=== PATIENT | male | born 1955 | race Two or more races ===

== ENCOUNTER 2018-01-29 10:57 | Emergency (ER) | payer MEDICAID, MEDICARE, OTHER ==
[~2018-01-29] VITALS: Ht 177.8 cm; Wt 89.8 kg
[~2018-01-29 10:57] MED LIST: RANITIDINE HCL150 MG ORAL; TAMSULOSIN HCL0.4 MG ORAL
[2018-01-29] MEDS ORDERED: IBUPROFEN600 MG ORAL (11:32)
[2018-01-29 11:41] VITALS: BP 96/60
--- NOTE | 2018-01-29 14:09 | Emergency Room Report ---
History of Present Illness General Chief Complaint: General Complaint Source: Patient, Medical Record Present Illness HPI 62-year-old male presents ED for evaluation. States that since last night he's been experiencing some chills and body aches. Afebrile in triage. Denies any symptoms at this time. Denies cough. Denies sore throat or earache. Denies dysuria or hematuria. Denies sick contacts or recent travel. No other aggravating relieving factors. Denies any other associated symptoms Allergies: Coded Allergies: No Known Allergies (Verified , 02/26/10) Patient History Past Medical History: none Past Surgical History: none Pertinent Family History: none Social History: Denies: smoking, alcohol use, drug use Immunizations: UTD Reviewed Nursing Documentation: PMH: Agreed; PSxH: Agreed Nursing Documentation-PMH Past Medical History: No History, Except For Physical Exam Vital Signs Date Time Temp Pulse Resp B/P (MAP) Pulse Ox O2 Delivery O2 Flow Rate FiO2 01/29/18 11:01 99.5 94 18 82/54 95 Room Air 99.5 Medical Decision Making Diagnostic Impression: Primary Impression: Upper respiratory infection Qualified Codes: J06.9 - Acute upper respiratory infection, unspecified ER Course Hospital Course 62-year-old male presents ED with episodic body aches and chills Differential diagnoses include: URI, pharyngitis, otitis media, asthma Clinical course Patient placed on stretcher. After initial history, physical exam reveals an elderly male in no acute distress. Bilateral TM unremarkable. No pharyngeal erythema. No tonsillar exudates. No lymphadenopathy. lungs clear. abdomen soft. Exam unremarkable. Vital stable. Reassurance given to patient. treatment is supportive therapy Diagnosis - URI Stable and discharged home with Rx Motrin. Instructed to followup with PMD. Return to ED if symptoms recur or worsen Last Vital Signs Date Time Temp Pulse Resp B/P (MAP) Pulse Ox O2 Delivery O2 Flow Rate FiO2 01/29/18 11:41 99.5 80 18 96/60 95 Room Air 99.5 Status: improved Disposition: HOME, SELF-CARE Condition: Stable Scripts Ibuprofen* (MOTRIN*) 600 Mg Tablet 600 MG ORAL Q8H PRN for For Pain, #30 TAB 0 Refills Prov: Franky Gilliam MD 01/29/18 Patient Instructions: Viral Respiratory Infection, [id number] Franky Gilliam MD Jan 29, 2018 14:09
== END 2018-01-29 11:57 | disposition home or self-care (01) ==
LOC: EMR 11:26
DX: J06.9 Acute upper respiratory infection, unspecified (principal)
CPT/HCPCS: 99283

== ENCOUNTER 2019-03-06 20:37 | Emergency (ER) | payer MEDICAID, MEDICARE, OTHER ==
[~2019-03-06] VITALS: Ht 165.1 cm; Wt 90.7 kg
[~2019-03-06 20:37] MED LIST changes: +IBUPROFEN600 MG ORAL
[2019-03-06 20:45] VITALS: BP 136/78
--- NOTE | 2019-03-06 20:45 | NUR ---
ED Nurse Note: Pt brought in by ambulance from street, pt was witnessed ground level fall, hitting the back of his head, denies pain at this time. Pt is awake and oriented to self and place. Pt is calm and cooperative, small area of dried blood on posterior head, denies LOC. Pt placed on monitor.
--- NOTE | 2019-03-06 20:50 | Emergency Room Report ---
History of Present Illness General Chief Complaint: Multiple Trauma/Fall Source: Patient Present Illness HPI Patient presents with complaints of occipital pain and upper neck pain patient had a fall earlier today Cannot recall the specifics of his fall Patient does report drinking heavily today Denies any chest pain or shortness of breath Denies any back or flank pain Denies any focal weakness patient ambulates with a cane Allergies: Coded Allergies: No Known Allergies (Verified , 02/26/10) Patient History Past Medical History: see triage record Reviewed Nursing Documentation: PMH: Agreed; PSxH: Agreed Review of Systems All Other Systems: negative except mentioned in HPI Physical Exam Vital Signs Date Time Temp Pulse Resp B/P (MAP) Pulse Ox O2 Delivery O2 Flow Rate FiO2 03/06/19 20:38 98.1 64 16 136/78 (97) 96 Room Air Sp02 EP Interpretation: reviewed, normal General Appearance: well appearing, no apparent distress Head: normocephalic, other - Small abrasion posterior occipital region scabbing Eyes: bilateral eye PERRL, bilateral eye EOMI ENT: hearing grossly normal, normal pharynx, TMs + canals normal, uvula midline Neck: full range of motion, supple, no meningismus, no bony tend - However mildly uncomfortable paraspinal C3-C4 region Respiratory: lungs clear, normal breath sounds, no rhonchi, no respiratory distress, no retraction, no accessory muscle use Cardiovascular #1: normal peripheral pulses, regular rate, rhythm, no edema, no gallop, no JVD, no murmur Gastrointestinal: normal bowel sounds, non tender, soft, no mass, no organomegaly, non-distended, no guarding, no hernia, no pulsatile mass, no rebound Genitourinary: no CVA tenderness Musculoskeletal: normal inspection Neurologic: oriented x3, responsive, nursing assoc III-XII nml as tested, motor strength/ tone normal, sensory intact Psychiatric: mood/affect normal Skin: no rash Lymphatic: normal inspection, no adenopathy Medical Decision Making Diagnostic Impression: Primary Impression: Alcohol abuse Additional Impression: Head injury ER Course Multiple differentials including but not limited to neurological, neurosurgical , cardiac, metabolic pathology entertained Patient's blood work reveals a low potassium level which was replaced CT imaging of the head and neck area is negative for acute trauma Patient remains hemodynamically stable He does again report alcohol intake patient is observed further for further sobriety With outpatient disposition Labs Test 03/06/19 21:00 White Blood Count 5.6 K/UL (4.8-10.8) Red Blood Count 4.95 M/UL (4.70-6.10) Hemoglobin 14.7 G/DL (14.2-18.0) Hematocrit 44.8 % (42.0-52.0) Mean Corpuscular Volume 90 FL (80-99) Mean Corpuscular Hemoglobin 29.7 PG (27.0-31.0) Mean Corpuscular Hemoglobin Concent 32.8 G/DL (32.0-36.0) Red Cell Distribution Width 12.0 % (11.6-14.8) Platelet Count 112 K/UL (150-450) Mean Platelet Volume 13.3 FL (6.5-10.1) Neutrophils (%) (Auto) 57.0 % (45.0-75.0) Lymphocytes (%) (Auto) 33.1 % (20.0-45.0) Monocytes (%) (Auto) 7.5 % (1.0-10.0) Eosinophils (%) (Auto) 1.6 % (0.0-3.0) Basophils (%) (Auto) 0.8 % (0.0-2.0) Sodium Level 143 MMOL/L (136-145) Potassium Level 2.9 MMOL/L (3.5-5.1) Chloride Level 103 MMOL/L (98-107) Carbon Dioxide Level 31 MMOL/L (21-32) Anion Gap 9 mmol/L (5-15) Blood Urea Nitrogen 6 mg/dL (7-18) Creatinine 0.7 MG/DL (0.55-1.30) Estimat Glomerular Filtration Rate > 60 mL/min (>60) Glucose Level 106 MG/DL (74-106) Calcium Level 8.1 MG/DL (8.5-10.1) Rhythm Strip Diag. Results EP Interpretation: yes Rate: 80 Rhythm: NSR, no PVC's, no ectopy CT/MRI/US Diagnostic Results CT/MRI/US Diagnostic Results : Impression CT head no acute disease CT C-spine no acute disease Last Vital Signs Date Time Temp Pulse Resp B/P (MAP) Pulse Ox O2 Delivery O2 Flow Rate FiO2 03/06/19 20:45 98.1 64 16 136/78 96 Room Air Status: improved Disposition: HOME, SELF-CARE Condition: Improved Additional Instructions: Patient is provided with the discharge instructions notified to follow up with primary doctor in the next 2-3 days otherwise return to the er with any worsening symptoms. Please note that this report is being documented using [employer] technology. This can lead to erroneous entry secondary to incorrect interpretation by the dictating instrument. Osbaldo Vigil DO Mar 06, 2019 20:50
[2019-03-06 21:16] LABS: BASOPHILS % (AUTO) 0.8 % (0.0-2.0); EOSINOPHILS % (AUTO) 1.6 % (0.0-3.0); HEMATOCRIT 44.8 % (42.0-52.0); HEMOGLOBIN 14.7 G/DL (14.2-18.0); LYMPHOCYTES % (AUTO) 33.1 % (20.0-45.0); MEAN CORPUSCULAR VOLUME 90 FL (80-99); MONOCYTES % (AUTO) 7.5 % (1.0-10.0); PLATELET COUNT 112 K/UL (150-450); RED BLOOD COUNT 4.95 M/UL (4.70-6.10); WHITE BLOOD COUNT 5.6 K/UL (4.8-10.8)
[2019-03-06 21:18] LABS: ANION GAP 9 mmol/L (5-15); BLOOD UREA NITROGEN 6 mg/dL (7-18); CALCIUM 8.1 MG/DL (8.5-10.1); CARBON DIOXIDE 31 MMOL/L (21-32); CHLORIDE 103 MMOL/L (98-107); CREATININE 0.7 MG/DL (0.55-1.30); POTASSIUM 2.9 MMOL/L (3.5-5.1); SODIUM 143 MMOL/L (136-145)
--- NOTE | 2019-03-06 22:30 | NUR ---
ED Nurse Note: Pt resting in bed with eyes closed, non-labored breathing. No signs of distress. Will continue to monitor.
--- NOTE | 2019-03-07 01:23 | NUR ---
ED Nurse Note: Pt side laying with eyes closed, awakens to name. awaiting pt to sober up more before discharge. Will continue to monitor
[2019-03-07 01:24] VITALS: BP 128/70
--- NOTE | 2019-03-07 03:30 | NUR ---
ED Nurse Note: Pt resting with eyes closed, awakens to name. Pt unable to ambulate with steady gait at this time. Will continue to monitor
[2019-03-07 04:05] VITALS: BP 128/70
--- NOTE | 2019-03-07 05:59 | NUR ---
ER DISCHARGE NOTE: Patient is cleared to be discharged per ERMD, pt is aox4, on room air, with stable vital signs. pt was given dc and prescription instructions, pt was able to verbalize understanding, pt id band removed. pt is able to ambulate with steady gait. pt took all belongings.
[2019-03-07 06:00] VITALS: BP 128/70
--- NOTE | 2019-03-09 11:43 | Cardiology Report ---
APPROVED REPORT EKG Measurement Heart [id number] CO [id number] Normal sinus rhythm Nonspecific ST abnormality Abnormal ECG
== END 2019-03-07 06:00 | disposition home or self-care (01) ==
LOC: EDBD 20:37 → EMR 20:51
DX: S09.90XA Unspecified injury of head, initial encounter (principal); F10.10 Alcohol abuse, uncomplicated; M54.2 Cervicalgia; W18.30XA Fall on same level, unspecified, initial encounter; Y92.9 Unspecified place or not applicable
CPT/HCPCS: 36415; 70450; 72125; 80048; 85025; 93005; 99284; J8499

== ENCOUNTER 2019-09-30 01:49 | Emergency (ER) | payer MEDICAID, MEDICARE, OTHER ==
[~2019-09-30] VITALS: Ht 177.8 cm; Wt 95.3 kg
[2019-09-30 01:55] VITALS: BP 128/87
--- NOTE | 2019-09-30 01:55 | NUR ---
ED Nurse Note: Patient brought into ED by [facility] from home c/o fall and laceration located on patients right head, patient is alert however is slurring words, knows where he currently is at. patient states that his girlfriend tested positive for covid, patient placed on isolation precautions, presents with laceration on the right side of his head approximately 2 inches in length. cleaned patient up. meds carried out as ordered. will continue to monitor
--- NOTE | 2019-09-30 01:56 | NUR ---
ED Nurse Note: patient admits to drinking vodka, states that he drnk about 500mL of vodka.
[2019-09-30] MEDS ORDERED: Tetanus/Diptheria/Pertussis IM ONE (02:00)
--- NOTE | 2019-09-30 02:02 | Emergency Room Report ---
History of Present Illness General Chief Complaint: Multiple Trauma/Fall Source: Patient Present Illness [facility] This is a 63-year-old male with no significant past medical history. He does have a history of alcohol abuse. He presents with chief complaint of a fall with head injury. His son called 911. Patient been drinking heavily today. He drank three quarters of a bottle of vodka. It was 7 and 50 mL bottle. He hit his head and sustained a laceration and bleeding. Patient denies any pain. He has no nausea vomiting or diarrhea. He has no cough or congestion. No fever. He is however want COVID testing because his is in the hospital for the last 2 weeks because of COVID infection. This also caused him a lot of stress and caused him to be drinking more. Allergies: Coded Allergies: No Known Allergies (Verified , 02/26/10) COVID-19 Screening Contact w/high risk pt: Yes Recent Travel to affected area: No Experienced COVID-19 symptoms?: No Patient History Past Medical History: see triage record, old chart reviewed Past Surgical History: none Pertinent Family History: none Social History: Reports: alcohol use Immunizations: other Reviewed Nursing Documentation: PMH: Agreed; PSxH: Agreed Review of Systems Eye: Denies: eye pain, blurred vision ENT: Denies: ear pain, nose congestion, throat swelling Respiratory: Denies: cough, shortness of breath Cardiovascular: Denies: chest pain, palpitations Gastrointestinal: Denies: abdominal pain, diarrhea, nausea, vomiting Musculoskeletal: Denies: back pain, joint pain Skin: Denies: rash Neurological: Denies: headache, numbness Endocrine: Denies: increased thirst, increased urine Hematologic/Lymphatic: Denies: easy bruising All Other Systems: negative except mentioned in HPI Physical Exam Vital Signs Date Time Temp Pulse Resp B/P (MAP) Pulse Ox O2 Delivery O2 Flow Rate FiO2 09/30/19 01:49 80 16 128/87 (101) 99 Room Air Vitals normal Sp02 EP Interpretation: reviewed, normal General Appearance: well appearing, no apparent distress, alert, other - Intoxicated Head: normocephalic, other - 4 cm laceration to the right parietal scalp. There is a small hematoma. No foreign body. Eyes: bilateral eye PERRL, bilateral eye EOMI ENT: hearing grossly normal, normal pharynx Neck: full range of motion, supple, no meningismus Respiratory: chest non-tender, lungs clear, normal breath sounds Cardiovascular #1: regular rate, rhythm, no murmur Gastrointestinal: normal bowel sounds, non tender, no mass, no organomegaly, no bruit, non-distended Musculoskeletal: back normal, normal range of motion, gait/station normal Psychiatric: mood/affect normal Procedures Laceration/Wound Repair Laceration/Wound Repair : Consent: Verbal Wound Location: head Wound's Depth, Shape: linear Wound Length (cm): 4 Wound Explored: clean Irrigated w/ Saline (ccs): 1000 Wound Repaired With: harini - I placed 4 harini Patient Tolerated: Well Complications: None Medical Decision Making Diagnostic Impression: Primary Impression: Alcohol intoxication Qualified Codes: F10.920 - Alcohol use, unspecified with intoxication, uncomplicated Additional Impressions: Head injury, acute Qualified Codes: S09.90XA - Unspecified injury of head, initial encounter Laceration of scalp Qualified Codes: S01.01XA - Laceration without foreign body of scalp, initial encounter Close exposure to COVID-19 virus ER Course Patient presents with alcohol intoxication with a fall and head injury and scalp laceration. CT scan ordered to rule out bleed or skull fracture. He does have close contact with COVID patient and his . I will send a COVID culture. This patient was evaluated in the context of the global COVID-19 pandemic, which necessitated consideration that the patient might be at risk for infection with the [id number] virus that causes COVID-19. Institutional protocols and algorithms that pertain to the evaluation of patients at risk for COVID-19 and the state of rapid change based on information released by multiple regulatory bodies including the CDC and federal and state organizations. These policies and algorithms were followed during the patient' s care in the ED. CT/MRI/US Diagnostic Results CT/MRI/US Diagnostic Results : Imaging Test Ordered: CT head Impression Read by radiologist. Bussey in the right parietal region. No skull fracture or intracranial hemorrhage. Last Vital Signs Date Time Temp Pulse Resp B/P (MAP) Pulse Ox O2 Delivery O2 Flow Rate FiO2 09/30/19 01:49 80 16 128/87 (101) 99 Room Air Status: improved Disposition: HOME, SELF-CARE Condition: Stable Additional Instructions: Abstain from alcohol. Go to rehab. Follow-up with your doctor in 7 days. Return if symptoms worsen. You were tested for COVID-19 infection. Results usually takes 2 to 5 days. Someone will call you with either positive or negative results. Amish Lugo MD Sep 30, 2019 02:02
--- NOTE | 2019-09-30 02:05 | NUR ---
ED Nurse Note: ERMD has placed 4 harini on patients upper right scalp.
--- NOTE | 2019-09-30 02:56 | Diagnostic Imaging Report ---
EXAM: CT Head Without Intravenous Contrast CLINICAL HISTORY: TRAUMA TECHNIQUE: Axial computed tomography images of the head/brain without intravenous contrast. CTDI is 53.4 mGy and DLP is 1045.5 mGy-cm. One or more of the following dose reduction techniques were used: automated exposure control, adjustment of the mA and/or kV according to patient size, use of iterative reconstruction technique. COMPARISON: 03/06/19 FINDINGS: Brain: Areas of decreased density in the white matter which are nonspecific but are likely related to small vessel ischemic changes. Cerebral atrophy. No hemorrhage. Ventricles: Unremarkable. Bones/joints: Unremarkable. No acute fracture. Soft tissues: Skin harini in the right parietal region with surrounding soft tissue swelling. Sinuses: Areas of mild mucosal thickening in the paranasal sinuses. Mastoid air cells: Status post right mastoidectomy. Minimal opacification suspected of the left mastoid air cells. IMPRESSION: 1. Skin harini in the right parietal region with surrounding soft tissue swelling. 2. Areas of decreased density in the white matter which are nonspecific but are likely related to small vessel ischemic changes. 3. Cerebral atrophy. 4. No definite CT evidence for acute intracranial injury.
[2019-09-30 05:30] VITALS: BP 132/82
--- NOTE | 2019-09-30 05:40 | NUR ---
ED Nurse Note: left voicemail at [phone], patient's home phone on file
--- NOTE | 2019-09-30 05:54 | NUR ---
patient's daughter, tammie [phone]
--- NOTE | 2019-09-30 06:13 | NUR ---
patient's daughter, clary, [phone]. states that she will schedule a ride home for this patient however states that patient's son still needs to wake up.
[2019-09-30 07:35] VITALS: BP 132/82
--- NOTE | 2019-09-30 07:37 | NUR ---
ED Nurse Note: Received pt from [facility] GILES, pt on bed, asleep, VSS, on RA; NAD noted.
--- NOTE | 2019-09-30 08:35 | NUR ---
ED Nurse Note: Spoke with Yeimi daughter for follow-up for the ride, said she's still trying to call the son for the uber.
[2019-09-30 09:45] VITALS: BP 130/80
--- NOTE | 2019-09-30 09:45 | NUR ---
ER DISCHARGE NOTE: Pt is cleared to be discharged per ERMD, pt is aox4, on room air, with stable vital signs. pt was given dc and prescription instructions, pt was able to verbalize understanding, pt id band removed. pt is able to ambulate with steady gait. pt took all belongings.
== END 2019-09-30 09:45 | disposition home or self-care (01) ==
LOC: EDBD 01:49 → EMR 02:05
DX: S09.90XA Unspecified injury of head, initial encounter (principal); F10.129 Alcohol abuse with intoxication, unspecified; S01.01XA Laceration without foreign body of scalp, initial encounter; U07.1 COVID-19; W19.XXXA Unspecified fall, initial encounter; Y92.9 Unspecified place or not applicable; Z23 Encounter for immunization
CPT/HCPCS: 12002; 70450; 90471; 90715; 99284; U0002; 87635